=== PATIENT | female | born 2000 | race Hispanic/Latino ===

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

== ENCOUNTER 2019-01-29 21:27 | Emergency (ER) | payer OTHER ==
[~2019-01-29] VITALS: Ht 162.6 cm; Wt 54.1 kg
[2019-01-29] MEDS ORDERED: IBUPROFEN 600 MG TAB PO ONE (22:00)
[2019-01-29 23:08] VITALS: BP 105/68
--- NOTE | 2019-01-30 01:24 | REP ---
Clinical: Trauma. Injury. Technique: AP, lateral, bilateral oblique views of the left ankle. Findings: Lateral swelling consist with inversion injury. Small bony fragment at the tip of the fibula is suspected and may represent acute versus chronic avulsion fracture versus unfused apophysis. No prior examinations are available for comparison and correlation is required. Impression: Lateral swelling and small bony fragment at the fibular tip as described above. Correlation is required. Electronically Signed by Haider Rashid MD 01/30/2019 01:15 A
== END 2019-01-29 23:08 | disposition home or self-care (01) ==
LOC: M ED 21:27
DX: S82.492A Other fracture of shaft of left fibula, initial encounter for closed fracture (principal); W10.9XXA Fall (on) (from) unspecified stairs and steps, initial encounter; Y92.009 Unspecified place in unspecified non-institutional (private) residence as the place of occurrence of the external cause

== ENCOUNTER 2019-09-05 03:34 | Outpatient (CLI) | payer OTHER ==
[~2019-09-05] VITALS: Ht 162.6 cm; Wt 63.9 kg
[2019-09-05 03:57] VITALS: BP 109/73
[2019-09-05] MEDS ORDERED: BETAMETHASONE SOLUSPAN 6MG/ML 5ML VIAL (J0702 PER 3MG) IM ONE (05:00)
[2019-09-05] MEDS ORDERED: LR 1,000 ML IV ONE (05:00)
[2019-09-05] MEDS ORDERED: TERBUTALINE SULFATE 1 MG/ML VIAL (J3105) SC ONE (05:00)
--- NOTE | 2019-09-05 05:17 | IPNPDOC ---
Text Note Date of Service The patient was seen on 09/05/19. NOTE Patient is 19yo G 3 P 0 at 34.5wks. C/o cramps for 2days. No loss of fluid. x1 of bloody discharge at 0200 today. Good movement. PE: VS WNL GEN NAD, Comfortable SVE: 50/-3 very soft FHT: Category 1, 120s, reactive, no decels. contractions [id number]. A/P: Fetus reassuring. Patient having labor without rupture of membranes. Will start IVF bolus and terb and Beta series. Monitor for at least 4hrs. VS,Fishbone, I+O VS, Fishbone, I+O Vital Signs Date Time Temp Pulse Resp B/P (MAP) Pulse Ox O2 Delivery O2 Flow Rate FiO2 09/05/19 03:57 98.1 125 109/73 (85) Cielo Jarvis MD Sep 05, 2019 05:12
[2019-09-05 06:29] VITALS: BP 111/69
[2019-09-05 07:42] LABS: AMORPHOUS SEDIMENT SMALL (NEGATIVE); APPEARANCE, URINE CLEAR (CLEAR); BACTERIA, URINE AUTO NEGATIVE (NEGATIVE); BILIRUBIN, URINE AUTO NEGATIVE (NEGATIVE); BLOOD, URINE BLOOD 2+ (NEGATIVE); COLOR, URINE YELLOW (YELLOW); GLUCOSE, URINE (UA) AUTO NEGATIVE (NEGATIVE); KETONE, URINE AUTO 1+ mg/dL (NEGATIVE); LEUKOCYTE ESTERASE, URINE AUTO TRACE (NEGATIVE); MUCUS, URINE SMALL (NEGATIVE); NITRITE, URINE AUTO NEGATIVE (NEGATIVE); PROTEIN, URINE AUTO NEGATIVE (NEGATIVE); RBC, URINE AUTO 80 /HPF (0-3); SPECIFIC GRAVITY URINE AUTO 1.013 (1.002-1.035); SQUAMOUS EPITHELIAL CELL UR AU 1 /HPF (0-6); WBC, URINE AUTO 5 /HPF (0-3)
[2019-09-05 07:43] VITALS: BP 92/49
[2019-09-05 09:32] VITALS: BP 90/54
--- NOTE | 2019-09-05 12:52 | REP ---
OB ULTRASOUND WITH BIOPHYSICAL PROFILE: Real-time sonographic evaluation of the gravid uterus performed utilizing transabdominal and endovaginal technique. There is a single living intrauterine gestation. The estimated gestational age is 34 weeks 6 days with EDC 10/11/2019. heart rate 141 beats per minute. Amniotic fluid is within normal limits, BRIDGET 10.8 within normal range of 7.9 to 24.9. Biophysical profile score is 8/8. S/D ratio 2.15, normal range 2.0 to 3.0. RI 0.53, normal range of 0.59 to 0.75. position vertex. Placenta posterior and grade 2 with no previa or abruption. Cervix is closed and measures 2.7 cm in length with no funneling. Electronically Signed by Patrice Gray MD 09/05/2019 04:20 P
--- NOTE | 2019-09-05 17:06 | DSES ---
DATE OF ADMISSION: 09/05/2019 DATE OF DISCHARGE: 09/05/2019 A 19-year-old 3, para 0, abortio 2, last menstrual period (LMP) 01/04/2019, estimated date of confinement (EDC) 10/11/2019. She is at 34 and 6 weeks of gestation. Came in with bloody discharge and contractions. On admission her blood pressure is 109/73, respirations 18, pulse 125, and temperature is 98.1. On examination digitally by the admitting physician, she was 1, 50% effaced, -3 station, very soft. She had a reactive strip with no decelerations. The contractions were noted. She was hydrated with intravenous (IV) fluids, given terbutaline, and first dose of betamethasone. Her urine indicated 1013, pH 6, +1 ketones. Trace of leukocyte esterase and bacteria were negative. While here, she had spaced-out contractions, was fluid challenged. No evidence of ongoing contraction. A biophysical profile was performed and was 8/8, estimated 34.[address] ratio, RI index was normal, amniotic fluid 10.6, and her cervix was 2.7 cm with funneling. A GBS culture was done for prophylaxis, and the patient was counseled regarding returning in less than 24 hours for her second dose of betamethasone. Reviewed in her history the reason possibly for labor with her ketone positive. Also she has a bicornuate uterus with the baby in the right horn. The patient expressed understanding that she possibly will deliver . Present time is vertex. Importance of GBS prophylaxis and steroid completeness. Precautions were given. No intercourse, nothing in the vagina, bedrest, and returning of less than 24 hours for a second dose of betamethasone. On doing the culture, there was a minimal amount of blood in the vagina. Cervix was still the same, no change. Category 1 strip with no contractions, periodically, but not consistently, moderate variability with a normal baseline. In summary, we have a 34 and 6 gestation, history of a contractions, and ketone positive. Presently discharged to followup tomorrow for her second dose of betamethasone, and she has an appointment with Karrie FERGUSON on Saturday. She was counseled regarding labor, premature rupture of membranes, bleeding, to return or to call the provider ui application developer to discuss options. The patient expressed understanding was discharged undelivered.
== END 2019-09-05 13:35 | disposition home or self-care (01) ==
LOC: M LDO 03:34
PROVIDERS: ATTEND Obstetrics & Gynecology
DX: O26.853 Spotting complicating pregnancy, third trimester (principal); O60.03 Preterm labor without delivery, third trimester; Z3A.34 34 weeks gestation of pregnancy
CPT/HCPCS: 59025; 76815; 76817; 76819; 76820; 81001; 87070; 96372; G0378; G0463; J0702; J3105

== ENCOUNTER 2019-09-06 09:35 | Outpatient (CLI) | payer OTHER ==
[~2019-09-06] VITALS: Ht 162.6 cm; Wt 63.6 kg
[2019-09-06 09:49] VITALS: BP 107/57
[2019-09-06] MEDS ORDERED: BETAMETHASONE SOLUSPAN 6MG/ML 5ML VIAL (J0702 PER 3MG) IM ONE (10:00)
[2019-09-06 10:17] VITALS: BP 102/61
== END 2019-09-06 10:18 | disposition home or self-care (01) ==
LOC: M LDO 09:35
PROVIDERS: ATTEND Obstetrics & Gynecology
DX: O60.03 Preterm labor without delivery, third trimester (principal); Z3A.34 34 weeks gestation of pregnancy
CPT/HCPCS: 96372; G0378; G0463; J0702

== ENCOUNTER 2019-09-12 21:39 | Outpatient (CLI) | payer OTHER ==
[~2019-09-12] VITALS: Ht 162.6 cm; Wt 64.3 kg
[2019-09-12 21:52] VITALS: BP 123/76
--- NOTE | 2019-09-12 22:47 | IPNPDOC ---
Text Note Date of Service The patient was seen on 09/12/19. NOTE Patient is 19yo at 34wks. C/o contractions for 3days. No loss of fluid or bleeding. Good movement. Pelvic pressure. PE: VS WNL GEN NAD, Comfortable SVE: FT/20/-3 FHT: Category 1, 140s, reactive, no decels. contractions [id number]. UA: neg except small ketones A/P: Fetus reassuring. Patient not in pre-labor and no rupture of membranes. Patient hydrated and given dehydration precautions. Patient given labor precautions, rupture of membranes precautions and kick counts. She has a follow up appt next week. VS,Fishbone, I+O VS, Fishbone, I+O Vital Signs Date Time Temp Pulse Resp B/P (MAP) Pulse Ox O2 Delivery O2 Flow Rate FiO2 09/12/19 21:52 98.2 107 18 123/76 (92) Cielo Jarvis MD September 12, 2019 22:36
== END 2019-09-12 22:50 | disposition home or self-care (01) ==
LOC: M LDO 21:39
PROVIDERS: ATTEND Obstetrics & Gynecology
DX: O47.03 False labor before 37 completed weeks of gestation, third trimester (principal); Z3A.34 34 weeks gestation of pregnancy
CPT/HCPCS: 59025; G0378; G0463

== ENCOUNTER 2019-09-22 09:02 | Outpatient (CLI) | payer OTHER ==
[~2019-09-22] VITALS: Ht 162.6 cm; Wt 64.9 kg
--- NOTE | 2019-09-22 12:43 | IPNPDOC ---
Text Note Date of Service The patient was seen on 09/22/19. NOTE LND Triage Note S: Deysi is a 19yo at 37+2wks, EDC [id number] by LMP/1TUS, who presents to labor and delivery for a labor check. She states she has been jerald over the past two day, but then they became regular around 0300 this AM and much stronger around 0600 that were so uncomfortable that she could no longer sleep through them. She reports +FM, denies VB/LOF. Deysi's is complicated by Rh negatve blood type (O negative), bicornuate uterus (only noted in early US from previous at time of SAB); also will need Kidney US at delivery. O: VSS, afebrile, normotensive FHR 135, moderate variability, + accels, no decels noted, Reactive CTX by TOCO, irregular, mild by palpation and pt speaking and not acknowledging contractions when they occur VE: 2.5/50/-3, moderate and posterior, Amniotic sac palpated, no bloody show noted A: 19yo at 37+2wks, latent labor, Category I FHT P: Pt discharged home with Labor/danger precautions Reviewed comfort measures Pt needs to schedule f/u [facility] in clinic Can f/u here in LND PRN ZULEIMA LUND CNM September 22, 2019 12:43
== END 2019-09-22 11:20 | disposition home or self-care (01) ==
LOC: M LDO 09:02
PROVIDERS: ATTEND Registered Nurse Maternal Newborn
DX: O60.03 Preterm labor without delivery, third trimester (principal); Z3A.37 37 weeks gestation of pregnancy
CPT/HCPCS: 59025; G0378; G0463

== ENCOUNTER 2019-09-23 23:06 | Outpatient (CLI) | payer OTHER ==
[~2019-09-23] VITALS: Ht 154.9 cm; Wt 65.8 kg
[2019-09-23 23:20] VITALS: BP 120/74
--- NOTE | 2019-09-24 23:24 | HPE ---
DATE OF ADMISSION: A 18-year-old 3, para 0, abortio 2, last menstrual period (LMP) 01/04/2019, estimated date of confinement (EDC) 10/11/2019 at 37 and 3 weeks of gestation, history of contractions. No vaginal loss or bleeding or show. She was here less than 24 hours ago with similar episodes. Risk factors: She is Rh negative, has a bicornate uterus. PAST HISTORY: July 2018: Spontaneous 8 weeks, dilation and curettage (D and C). October 2018: Spontaneous 6 weeks, complete. Blood pressure is 120/74, respirations 18, pulse 94 and temperature is 98.4. Urine is unavailable. Labs are O negative, HIV negative, hepatitis negative, RPR negative, rubella immune. Gonorrhea and chlamydia are negative. One-hour glucose is 116. She had a GBS culture done 09/08/2019, which was negative. On examination, she appears distressed with movement of the baby. Symphysis fundus height is 38, vertex posterior, thick, 2-3 centimeters, soft. No show or vaginal loss or bleeding. Our plan is to discharge with discharge instructions. She has an appointment tomorrow with Karrie FERGUSON. GBS culture was redone today, and she was given instructions regarding COVID testing and self isolation. The patient was discharged undelivered.
== END 2019-09-24 00:40 | disposition home or self-care (01) ==
LOC: M LDO 23:06
PROVIDERS: ATTEND Obstetrics & Gynecology
DX: O26.893 Other specified pregnancy related conditions, third trimester (principal); Z3A.37 37 weeks gestation of pregnancy
CPT/HCPCS: 59025; 87081; G0378; G0463

== ENCOUNTER 2019-09-25 16:03 | Inpatient (IN) | payer OTHER ==
[~2019-09-25] VITALS: Ht 162.6 cm; Wt 65.5 kg
[2019-09-25] MEDS ORDERED: PENICILLIN G POTASSIUM IV 5 MU in D5W MINI-BAG PLUS 100 ML IV STA ×2 (16:33→17:15)
[2019-09-25] MEDS ORDERED: LACTATED RINGER'S 1000 ML IV STA (16:33)
[2019-09-25] MEDS ORDERED: LR 1,000 ML IV SCH (17:14)
[2019-09-25] MEDS ORDERED: LACTATED RINGER'S 1000 ML IV ONE (17:15)
[2019-09-25 17:20] LABS: BASO % 0.2 % (0.0-1.0); EOS # 0.1 10^3/uL (0.0-0.5); EOS % 0.5 % (0.0-3.0); HEMATOCRIT 33.1 % (36.0-47.0); HEMOGLOBIN 10.3 g/dl (12.0-15.5); LYMPH # 1.7 10^3/uL (1.5-5.0); LYMPH % 13.9 % (24.0-44.0); MEAN CORPUSCULAR HEMOGLOBIN 25.2 pg (27.0-33.0); MEAN CORPUSCULAR HGB CONC 31.1 g/dl (32.0-36.5); MEAN CORPUSCULAR VOLUME 81.1 fl (80.0-96.0); MONO # 0.9 10^3/uL (0.0-0.8); MONO % 6.9 % (0.0-5.0); NEUTROPHILS # 9.7 10^3/uL (1.5-8.5); NEUTROPHILS % 77.9 % (36.0-66.0); PLATELET COUNT, AUTOMATED 160 10^3/uL (150-450); RED BLOOD COUNT 4.08 10^6/uL (4.00-5.40); WHITE BLOOD COUNT 12.4 10^3/uL (4.0-10.0)
[2019-09-25] MEDS ORDERED: BUTORPHANOL 2 MG/ML INJ (J0595) As Ordered ONE (19:40)
[2019-09-25] MEDS ORDERED: PROMETHAZINE INJ 25 MG/ML VIAL (J2550) As Ordered ONE (19:40)
[2019-09-25] MEDS ORDERED: BUTORPHANOL 2 MG/ML INJ (J0595) IV ONE (19:45)
[2019-09-25] MEDS ORDERED: PROMETHAZINE INJ 25 MG/ML VIAL (J2550) IV ONE (19:45)
[2019-09-25] MEDS ORDERED: OXYTOCIN 30 UNITS IN 0.9% NaCl 500ML IV BAG (J2590) As Ordered ONE (20:03)
[2019-09-25] MEDS ORDERED: PENICILLIN G POTASSIUM IV 2.5 MU in IV 1 EA IV SCH ×2 (20:45→21:00)
[2019-09-26] VITALS (10 sets, daily range): BP systolic 106–123; BP diastolic 58–75
[2019-09-26 00:44] LABS: CORD GAS ABE V -6.4; CORD GAS HCO3 V 17.3 MEQ/L; CORD GAS O2 SAT V 87.3 %; CORD GAS PH V 7.38 UNITS; CORD GAS SBC V 19.1 MEQ/L; CORD GAS TCO2 V 18.3 MEQ/L
[2019-09-26 00:45] LABS: CORD GAS ABE A -3.2; CORD GAS O2 SAT A 44.3 %; CORD GAS PCO2 A 57.8 mmHg; CORD GAS PH A 7.254 UNITS; CORD GAS PO2 A 20.3 mmHg; CORD GAS SBC A 20.5 MEQ/L; CORD GAS TCO2 A 26.8 MEQ/L
[2019-09-26] MEDS ORDERED: OXYTOCIN DRIP 30 UNITS in IV 1 EA IV SCH (01:49)
[2019-09-26] MEDS ORDERED: LR 1,000 ML IV SCH (01:49)
[2019-09-26] MEDS ORDERED: IBUPROFEN 600 MG TAB PO PRN (02:00)
[2019-09-26] MEDS ORDERED: ACETAMINOPHEN TAB 650MG DOSE (2X325MG) PO PRN (02:00)
[2019-09-26] MEDS ORDERED: METHYLERGONOVINE MALEATE 0.2 MG TAB PO PRN (02:00)
[2019-09-26] MEDS ORDERED: MEASLES,MUMPS,RUBELLA VACCINE INJ (MMR-II) (90707) SC SCH (02:00)
[2019-09-26] MEDS ORDERED: OXYTOCIN INJ 10 UNITS/ML VIAL (J2590) IV ONE (02:00)
[2019-09-26] MEDS ORDERED: LIDOCAINE 1% MDV 20ML VIAL INFIL ONE (02:00)
[2019-09-26] MEDS ORDERED: DIBUCAINE 1% OINTMENT 30GM TOP PRN (02:00)
[2019-09-26] MEDS ORDERED: MOM 30ML SUSPENSION UDC PO PRN (02:00)
[2019-09-26] MEDS ORDERED: ACETAMINOPHEN 500 MG TAB PO PRN (02:00)
[2019-09-26] MEDS ORDERED: ANUSOL HC CREAM 30GM TOP PRN (02:00)
[2019-09-26] MEDS ORDERED: RHOGAM 300 MCG (1500 IU) INJ (J2790) IM SCH (02:00)
[2019-09-26] MEDS ORDERED: DOCUSATE SODIUM 100 MG CAP PO PRN (02:00)
[2019-09-26] MEDS: IBUPROFEN 800 MG TAB PO PRN ×2 (08:08→23:09)
[2019-09-26] MEDS ORDERED: OXYTOCIN INJ 10 UNITS/ML VIAL (J2590) As Ordered ONE (08:31)
[2019-09-26] MEDS ORDERED: LIDOCAINE 1% MDV 20ML VIAL As Ordered ONE (08:31)
[2019-09-26] MEDS: PRENATAL VITAMINS CHEWABLE TABLET PO SCH (09:04)
--- NOTE | 2019-09-26 11:00 | HPE ---
DATE OF ADMISSION: 09/25/2019 19-year-old, 3, para 0, abort 2, last menstrual period (LMP) 01/04/2019, estimated date of confinement (EDC) 10/11/2019, at 37 and 5 weeks of gestation with history of contractions 4 minutes apart. On admission, she was 5-6 cm dilated with bulging membranes. RISK FACTORS: She is Rh negative, has a bicornate uterus. PAST HISTORY: July of 2018, at 8 weeks, had a dilation and curettage (D and C). October of 2018, at 6 weeks, had a complete spontaneous . LABS: O negative, HIV negative, hepatitis negative, RPR negative, rubella immune. Urine was negative. Gonorrhea and chlamydia were negative. 1-hour glucose was 116. GBS is pending. Her hemoglobin is 10.3, hematocrit 33.1, and platelets are 160. Blood pressure is 116/70, respirations 20, pulse 108, and temperature 98.3. On examination, she is distressed. Symphysis fundus height is 37, vertex occiput anterior (OA). Exam by insole reinforcer is 5-6 cm, bulging membranes, -3 station. Category 1 strip. The plan of care is to hydrate, epidural on an as needed, and GBS prophylaxis basically for baby. The rest of the examination is unremarkable. She is normocephalic, atraumatic. Neck full range of motion. Pupils equal and reactive to light. Distal pulses are symmetric. No evidence of deep venous thrombosis (DVT), pulmonary embolism (PE) or superficial phlebitis. Chest is clear bilateral to bases. No wheezes or rhonchi. No costovertebral angle (CVA) tenderness. Abdomen was soft. Four quadrant bowel sounds are noted. She has no rashes, lesions or pruritus. No arthralgia or myalgia. No complaint of joint pain. No complaint cough, wheeze, shortness breath or dyspnea on exertion. No bruising. No bleeding. Neuro complete. No incontinency or frequency. No nausea, vomiting, diarrhea, or constipation. No diabetic issues. No heat or cold sensitivities. She has no history of sexually transmitted disease (STD) or abnormal Pap smears. Past medical and surgical history is unremarkable. Family history noncontributory. She does not smoke, drink, abuse drugs. She is . No domestic violence. Her is presently here. NO KNOWN ALLERGIES. We discussed delivery, which is through the vagina, possible use of forceps or vacuum if needed for maternal or indications. These are devices that can assist with vaginal delivery when normal pushing efforts cannot achieve delivery on their own or when delivery is needed in emergency for baby's well-being, medication may use to augment or induce labor, in order achieve vaginal delivery an episiotomy may be required in order to help the baby deliver vaginally, you may also require repair of any lacerations or tears to the vagina, the vulva that are caused by delivery, in some cases emergencies can arise that require emergency section for the baby's well-being and it would better than continuing on in labor. This will be discussed with the provider and is only done for medical indications. Other risks of vaginal delivery are bleeding, infection, injury to the vagina, pelvic structures, injury to baby, damage to the uterus, reaction to anesthesia, uterine rupture, risk of hysterectomy for life-threatening bleeding issues or even . Medications used to induce or augment labor possibly increase the risk of hysterectomy, section, hemorrhage, heart rate abnormalities, and the use of forceps or vacuum may include scratches, hematomas to the head or intracranial bleed. 20 minute discussion. All questions were answered. Safe to proceed.
--- NOTE | 2019-09-26 13:05 | IPN ---
DATE: 09/25/2019 This lady was admitted at 37 and 3 with active contractions. She got to 8 cm dilatation, at which time, an artifical rupture of membranes (AROM) was done draining clear liquor, -2 station, occiput transverse. Her group B streptococcus (GBS) status was unknown and she prophylactically treated for GBS status. We have a category 1 strip, no evidence of decelerations, good contraction pattern, anticipate a vaginal delivery.
--- NOTE | 2019-09-26 14:15 | IPN ---
DATE: 09/26/2019 This lady is a 19-year-old, 3, now para 1, admitted at 37 and 5 weeks of gestation with contractions. She had a spontaneous vaginal delivery, male infant, 7 pounds 4 ounces (3280 grams), of 8 and 9 at one and five minutes, respectfully. Arterial pH 7.25, base excess -3.2, venous pH 7.38, base excess -6.4. The patient has a bicornuate uterus, had a first-degree tear repaired in the usual fashion, is Rh negative. On examination today, her blood pressure is 107/58, respirations are 16, pulse 104, and temperature is 99.2. We discussed phlebitis, cystitis, mastitis, endometritis and cellulitis, diet, exercise, pain management, perineal, breast and wound care. The rest of examination unremarkable. Normocephalic, atraumatic. Neck full range of motion. Pupils equal and reactive to light. Distal pulses symmetric. No evidence of deep venous thrombosis (DVT), pulmonary embolism (PE), or superficial phlebitis. Chest is clear bilaterally bases. No wheezes or rhonchi. No costovertebral angle (CVA) tenderness. Abdomen: Soft, four quadrant bowel sounds are noted. Perineum is intact. In summary. we have a term gestation delivered a live male infant, planning on breast-feeding, discharge tomorrow, and medications were dispensed at [facility] and she will have a 6 week checkup at [facility].
[2019-09-27 06:00] VITALS: BP 101/57
[2019-09-27 07:03] LABS: HEMATOCRIT 30.5 % (36.0-47.0); HEMOGLOBIN 9.7 g/dl (12.0-15.5); MEAN CORPUSCULAR HEMOGLOBIN 26.3 pg (27.0-33.0); MEAN CORPUSCULAR HGB CONC 31.8 g/dl (32.0-36.5); MEAN CORPUSCULAR VOLUME 82.7 fl (80.0-96.0); PLATELET COUNT, AUTOMATED 162 10^3/uL (150-450); RED BLOOD COUNT 3.69 10^6/uL (4.00-5.40); WHITE BLOOD COUNT 14.6 10^3/uL (4.0-10.0)
[2019-09-27] MEDS: PRENATAL VITAMINS CHEWABLE TABLET PO SCH (08:13)
--- NOTE | 2019-09-27 09:03 | IPNPDOC ---
Progress Note Date of Service: September 27, 2019 Day#: 1 Progress Note SUBJECT: Patient is a 19 yo s/p PPD #1. she delivered at 0000 on 09/26/2019. She has been ambulating, voiding spontaneously without issue and tolerating regular diet. Breast feeding without issue. Reports lochia is like a normal period. patient not interested in contraceptive options at this time. OBJECTIVE: VITAL SIGNS: Within normal limits, afebrile. Alert and oriented times three. Abdomen: Fundus firm at U-2. Soft, NTTP. LE: No edema/erythema/tenderness A/P patient is ppd #1, doing well. discussed contraceptive option. encourage BF. d/c home today with baby. le, DO VS, I&O, 24H, Fishbone Vital Signs/I&O Vital Signs Date Time Temp Pulse Resp B/P (MAP) Pulse Ox O2 Delivery O2 Flow Rate FiO2 09/27/19 06:00 97.7 71 18 101/57 (72) 98 Room Air Laboratory Data 24H LABS Laboratory Tests 2 09/27/19 06:46: Nucleated Red Blood Cells % (auto) 0.0 CBC/BMP Laboratory Tests 09/27/19 06:46 SARAI DUMAS DO September 27, 2019 09:03
--- NOTE | 2019-09-27 09:07 | OBDS ---
[facility] Obstetrical Discharge Sum. Obstetrical Discharge Summary Date: September 27, 2019 : 3 Term: 1 Pre-term: 0 Abortions: 2 Livin VDRL: Non-Reactive Rh: Negative Rubella: Immune Infant Sex: Male Infant Weight: pounds (7), ounces (4) A/P, Post Course List any complications Admission diagnosis: Labor at 37+5wks gestation Discharge diagnosis: , spontaneous vaginal delivery Condition at Discharge: stable Discharge Instructions: Home Activity: as tolerated Diet: regular Medications: to be filled at [facility] Follow-up: 6-8wks Hospital course: Patient admitted for labor at term. She progressed to have a spontaneous vaginal delivery. course uncomplicated and patient discharged home on day number 1. SARAI DUMAS DO September 27, 2019 09:07
[2019-09-27 18:01] VITALS: BP 98/56
--- NOTE | 2019-09-27 18:10 | DN ---
DATE: 09/26/2019 This lady was admitted in active labor. She had a very uneventful labor followed by full dilatation. She did have a little local anesthetic in the perineal area, had a spontaneous vaginal delivery of a live male weighing 3279 grams, 7 pounds, 4 ounces, scores of 8 and 9 at one and five minutes respectfully. Arterial pH 7.25, base excess -3.2, venous pH 7.38, base excess -6.4. She sustained a small first-degree tear oversewn in the usual fashion, 2-0 on a J339. Her risk factors, she had a bicornuate uterus. The baby was mainly in the right horn of the uterus. She is also Rh negative. The uterus contracted well down on Pitocin. The perineum was intact. Sphincter was tight. Anterior, posterior and lateral zhang were complete. The patient and baby tolerating the procedure well.
[2019-09-27] MEDS: IBUPROFEN 800 MG TAB PO PRN (21:45)
[2019-09-28 05:27] VITALS: BP 108/63
--- NOTE | 2019-09-28 08:08 | IPNPDOC ---
Progress Note Date of Service: September 28, 2019 Day#: 2 Progress Note SUBJECT: Patient is a 19 yo s/p PPD #2. She delivered at 0000 on . She has been ambulating, voiding spontaneously without issue and tolerating regular diet. Breast feeding without issue. Reports lochia is like a normal period. patient not interested in contraceptive options at this time. Baby was not discharged yesterday. OBJECTIVE: VITAL SIGNS: Within normal limits, afebrile. Alert and oriented times three. Abdomen: Fundus firm at U-2. Soft, NTTP. LE: No edema/erythema/tenderness A/P patient is ppd #2, doing well. discussed contraceptive option. encourage BF. d/c home today with baby. DO levon VS, I&O, 24H, Fishbone Vital Signs/I&O Vital Signs Date Time Temp Pulse Resp B/P (MAP) Pulse Ox O2 Delivery O2 Flow Rate FiO2 09/28/19 05:27 98.4 79 18 108/63 (78) 98 Room Air SARAI DUMAS DO September 28, 2019 08:08
[2019-09-28 08:30] VITALS: BP 108/63
[2019-09-28] MEDS: PRENATAL VITAMINS CHEWABLE TABLET PO SCH (09:00)
== END 2019-09-28 12:35 | disposition home or self-care (01) | DRG 807 ==
LOC: M LDI 16:03 → M OBS 09-26 02:30
PROVIDERS: ADMIT Obstetrics & Gynecology; ATTEND Obstetrics & Gynecology
PROC: 10E0XZZ Delivery of Products of Conception, External Approach (ICD-10-PCS; principal; 2019-09-26)
PROC: 0HQ9XZZ Repair Perineum Skin, External Approach (ICD-10-PCS; 2019-09-26)
PROC: 10907ZC Drainage of Amniotic Fluid, Therapeutic from Products of Conception, Via Natural or Artificial Opening (ICD-10-PCS; 2019-09-26)
DX: O99.824 Streptococcus B carrier state complicating childbirth (principal); Z37.0 Single live birth; Z3A.37 37 weeks gestation of pregnancy; O70.0 First degree perineal laceration during delivery; O34.03 Maternal care for unspecified congenital malformation of uterus, third trimester